=== PATIENT | male | born 1995 | race Caucasian/White ===

== ENCOUNTER 2018-12-12 22:31 | Emergency (ER) | payer OTHER ==
[~2018-12-12] VITALS: Ht 180.3 cm; Wt 72.6 kg
[2018-12-12] MEDS ORDERED: HYDROmorphone 1mg/ml Carpuject IVP ONE (22:45)
--- NOTE | 2018-12-12 22:47 | Emergency Room Report ---
History of Present Illness General Chief Complaint: To Be Triaged Source: Patient Present Illness [facility] This a 23-year-old male who is right-hand dominant. He presents with chief complaint of right shoulder dislocation. He had dislocated at 8 times before and had labrum surgery a couple years ago. Not have any dislocation. He was playing soccer today and his arm was on top of another player. The player got up and pushed up on his arm. It caused it to be dislocated. Patient complained of severe pain. 10 out of 10. Worse with movement. Better with rest. This occurred about 25 minutes ago. Denies any other complaint. Allergies: Coded Allergies: No Known Allergies (Unverified , 12/12/18) Patient History Past Medical History: see triage record, old chart reviewed Past Surgical History: other Pertinent Family History: none Social History: Denies: smoking Immunizations: other Reviewed Nursing Documentation: PMH: Agreed; PSxH: Agreed Review of Systems Eye: Denies: eye pain, blurred vision ENT: Denies: ear pain, nose congestion, throat swelling Respiratory: Denies: cough, shortness of breath Cardiovascular: Denies: chest pain, palpitations Gastrointestinal: Denies: abdominal pain, diarrhea, nausea, vomiting Musculoskeletal: Reports: joint pain; Denies: back pain Skin: Denies: rash Neurological: Denies: headache, numbness Endocrine: Denies: increased thirst, increased urine Hematologic/Lymphatic: Denies: easy bruising All Other Systems: negative except mentioned in HPI Physical Exam Vitals normal Sp02 EP Interpretation: reviewed, normal General Appearance: well appearing, no apparent distress, alert Head: normocephalic, atraumatic Eyes: bilateral eye PERRL, bilateral eye EOMI ENT: hearing grossly normal, normal pharynx Neck: full range of motion, supple, no meningismus Respiratory: chest non-tender, lungs clear, normal breath sounds Cardiovascular #1: regular rate, rhythm, no murmur Gastrointestinal: normal bowel sounds, non tender, no mass, no organomegaly, no bruit, non-distended Musculoskeletal: back normal, other - Right shoulder with deformity to the deltoid consistent with anterior dislocation. No pain over the elbow. No pain over the wrist. Pulses normal. Sensation over the deltoid normal. Psychiatric: mood/affect normal Procedures Splinting Splinting : Consent: Verbal Location: Right shoulder Pre-Made Type: Shoulder immobilizer Pre-Proc Neuro Vasc Exam: normal Post-Proc Neuro Vasc Exam: normal Patient Tolerated: Well Complications: None Joint Reduction Joint Reduction : Consent: Verbal Joint Reduction Site: shoulder (R) Procedural Sedation: No Reduction Attempts: One Pre-Procedure NV Exam: Yes Post-Procedure NV Exam: Yes Post Joint Reduction Film: joint reduced Patient Tolerated: Well Complications: None Progress I did an intra-articular block with 1% lidocaine with epinephrine. A total of 10 cc injected. With gentle abduction and external rotation, I reduced the shoulder without difficulty. Patient tolerated procedure without any complication. Medical Decision Making Diagnostic Impression: Primary Impression: Anterior dislocation of right shoulder Qualified Codes: S43.014A - Anterior dislocation of right humerus, initial encounter ER Course Patient with shoulder dislocation anteriorly. Reduced easily. X-ray showed no evidence of any fracture. Will discharge home. Other X-Ray Diagnostic Results Other X-Ray Diagnostic Results : X-Ray ordered: Rt shoulder xrays # of Views/Limited Vs Complete: 3 View Indication: Pain EP Interpretation: Yes Interpretation: no dislocation, no soft tissue swelling, no fractures Impression: No acute disease Electronically Signed by: Mulugeta Mirza MD Status: improved Disposition: HOME, SELF-CARE Condition: Stable Scripts Ibuprofen* (MOTRIN*) 600 Mg Tablet 600 MG ORAL THREE TIMES A DAY, #30 TAB 0 Refills Prov: Mulugeta Mirza MD 12/12/18 Additional Instructions: Follow-up with your doctor in 7 days. Return if symptoms worsen. Mulugeta Mirza MD Dec 12, 2018 22:47
[2018-12-12 22:49] VITALS: BP 138/76
--- NOTE | 2018-12-12 22:53 | NUR ---
ED Nurse Note: Patient walked into ED c/o right shoulder dislocation due to playing soccer. Hx of right shoulder surgery. AAO x4, ambulaotry with noted right shoulder deformity.
--- NOTE | 2018-12-12 23:01 | NUR ---
HAND-OFF: Report given to frida MORALES.
--- NOTE | 2018-12-12 23:02 | NUR ---
ED Nurse Note: Received patient from ANDREW Manuel. procedure is finished, Dr. Mirza successfully placed shoulder back in to place, Patient will be put in an immobilizer.
[2018-12-12] MEDS ORDERED: IBUPROFEN600 MG ORAL (23:03)
[2018-12-12 23:10] VITALS: BP 128/73
--- NOTE | 2018-12-12 23:10 | NUR ---
ER DISCHARGE NOTE: Patient is cleared to be discharged per ERMD, pt is aox4, on room air, with stable vital signs. pt was given dc and prescription instructions, pt was able to verbalize understanding, pt id band and iv site removed without complications. pt is able to ambulate with steady gait. pt took all belongings.
--- NOTE | 2018-12-13 17:54 | Diagnostic Imaging Report ---
Indication: Pain, trauma, history of multiple prior dislocations and labral surgery Technique: 3 views of the left shoulder Comparison: None Findings: No acute fractures or dislocations. Joint spaces are preserved. Impression: Negative
== END 2018-12-12 23:10 | disposition home or self-care (01) ==
LOC: EMR 22:46
DX: S43.014A Anterior dislocation of right humerus, initial encounter (principal); W51.XXXA Accidental striking against or bumped into by another person, initial encounter; Y93.67 Activity, basketball; Y92.9 Unspecified place or not applicable
CPT/HCPCS: 23650; 73030; 96374; 96375; 99284; J1170; J2405